=== PATIENT | female | born 1935 | race Caucasian/White ===

== ENCOUNTER 2018-12-24 19:58 | Inpatient (IN) | payer OTHER ==
[~2018-12-24] VITALS: Ht 160 cm; Wt 69.7 kg
[2018-12-24 20:01] VITALS: Ht 160 cm; Wt 69.7 kg
--- NOTE | 2018-12-24 20:28 | NUR ---
PT KNOCKED AT THE DOOR STATING SHE WAS FEELING WORSE AND DIAPHORETIC. EKG IN PROGRESS.
[2018-12-24 21:05] LABS: BASOPHIL % 0.3 % (0-2); PLATELET COUNT 163 x10^3mcL (130-400); RED CELL DISTRIBUTION WIDTH 13.1 % (11.5-14.5)
--- NOTE | 2018-12-24 21:07 | NUR ---
PT CAME TO ED CO ABD PAIN X1 DAY. PT STS IT STARTED SUDDENLY. PT DISCRIBES THE PAIN CONSENT SHARP PAIN, NON RADIATING, RATING IT 10/10. PT STS SHE TOOK MEDICATION AT HOME AND THREW IT UP. NO S/S OF DISTRESS. REPS E/U. PAIN UPON PALPATION AT THE UMBILICUS. BOWEL SOUNDS ACTIVE IN ALL FOUR QUADRANT. DAUGHTER IN LAW AT BEDSIDE. COMFORT MEASURES IMPLEMENTED. WILL CONTINUE TO MONITOR.
[2018-12-24 21:13] LABS: CARBON DIOXIDE 22.5 mmol/L (21-32); CHLORIDE SERUM 103 mmol/L (98-107); CREATININE SERUM 0.9 mg/dL (0.6-1.0); GLUCOSE SERUM 160 mg/dL (74-106); POTASSIUM SERUM 3.1 mmol/L (3.5-5.1); SODIUM SERUM 140 mmol/L (136-145)
[2018-12-24 21:18] LABS: ALBUMIN 3.8 g/dL (3.4-5.0); ALKALINE PHOSPHATASE 102 U/L (46-116); ALT/SGPT 30 U/L (14-59); AST/SGOT 32 U/L (15-37); BILIRUBIN TOTAL 1.6 mg/dL (0.20-1.00); TOTAL PROTEIN, SERUM 7.7 g/dL (6.4-8.2)
--- NOTE | 2018-12-24 21:30 | NUR ---
PT MEDICATED PER ORDER. PT VERBALIZED UNDERSTANDING OF MEDICATION TEACHING. SEE EMAR FOR DETAILS.
--- NOTE | 2018-12-24 22:23 | NUR ---
PT MEDICATED PER ORDER. PT VERBALIZED UNDERSTANDING OF MEDICATION TEACHING. SEE EMAR FOR DETAILS.
--- NOTE | 2018-12-25 00:52 | NUR ---
PT MEDICATED PER ORDER. PT VERBALIZED UNDERSTANDING OF MEDICATION TEACH. SEE EMAR FOR DETAILS.
--- NOTE | 2018-12-25 01:36 | NUR ---
PT SITTING UP ON GURNEY, PT HAD 1 EPISODE OF VOMITING. DAUGHTER AT BEDSIDE. COMFORT MEASURES IMPLEMENTED. INFORMED MD OF DROP IN BP.
--- NOTE | 2018-12-25 01:54 | NUR ---
REPORT CALLED TO GUZMAN CINTRON TO ASSUME CARE OF PT.
--- NOTE | 2018-12-25 02:09 | NUR ---
NG TUBE PLACEMENT CONFIRM BY DR. PASTOR.
--- NOTE | 2018-12-25 02:14 | NUR ---
PT TRANSFERRED TO MED SURG FLOOR ACCOMPANIED BY EMT. NO S/S OF DISTRESS. RESP E/U. IV SITES PATENT. PT DENIES PAIN OR DISCOMFORT TO SITES. NO S/S OF INFILTRATION. DAUGHTER IN LAW PRESENT ON TRANSFER. RN AWARE OF FLUIDS RUNNING.
[2018-12-25 03:02] VITALS: BP 142/1; BP 142/81
--- NOTE | 2018-12-25 03:20 | NUR ---
Admitted this 83 y/o female from ED via [facility]. Dx SBO. Alert and oriented. No respiratory distress noted on room air. Ambulatory. On and off abd'l.pain and n/v. Medicated as ordered. NGTube to low intermittent suction. Admission assessment done. Kept comfortable. In no apparent distress. Call light within reach. Will cont.to monitor.
--- NOTE | 2018-12-25 04:12 | NUR ---
Pt.sleeping at this time. NGtube with scanty output. Will cont.to monitor.
[2018-12-25 05:42] VITALS: BP 107/67
[2018-12-25 07:30] VITALS: BP 113/69
--- NOTE | 2018-12-25 07:45 | NUR ---
ALERT AND ORIENTED. BREATHING FREELY ON RA. RT NARE NGT TO LOW SUCTION. SCANT AMT DARK GREEN GLUID IN CANISTER AND TUBING. NPO FOR POSS SX CONSULT AND SBO. INTERMITTENT N/V DARK GREEN FLUID. ABD SOFT AND ROUND. HYPOACTIVE BOWEL SOUNDS. LAST BM 12/24/18 NORMAL. D5NS INFUSING 70 CC HOUR. ABLE TO TURN AND REPOSITION SELF IN BED. CALL LIGHT WITHIN REACH.
[2018-12-25 08:48] VITALS: BP 113/69
--- NOTE | 2018-12-25 15:43 | NUR ---
CALLED AND SPOKE TO AND HE TOLD ME THAT WAS ALREADY NOTIFIED BY HIM OF NEED FOR SURGICAL CONSULT. NEW ORDER RECEIVED FROM SMALL BOWEL FOLLOW THROUGH FOR TOMORROW. KENTRELL HINDS ASSIGNED TO THIS PT MADE AWARE OF ABOVE.
[2018-12-25 16:13] VITALS: BP 106/73
--- NOTE | 2018-12-25 18:27 | NUR ---
ONGOING BOWEL FOLLOW THROUGH. 2ND XR BEING TAKEN. NEXT AT 2029, LAST 2129.
--- NOTE | 2018-12-25 18:35 | NUR ---
SEEN BY DR.AL STAPLES TODAY. SURGICAL CONSULT WITH DR. MECHELLE TRUONG. NGT CLAMPED FOR CONTRAST VIA NGT. TOLERATED WELL. BRP WITH ASSIST. NO BM. SEVERAL SMALL EMESIS DARK GREEN. NPO EXCEPT MEDS. DTR AT BEDSIDE. NS 70 CC HOUR TO RT AC. CALL LIGHT WITHIN REACH. VSS. INTERMITTENT EPIGASTRIC PAIN. MORPHINE HELPFUL.
[2018-12-25 19:40] VITALS: BP 108/65
--- NOTE | 2018-12-25 19:40 | NUR ---
RECEIVED PT AWAKE ALERT AND VERBALLY RESPONSIVE.NGT TO R NARES CLAMPED AT THIS TIME.SBFT ONGOING.ABDOMEN SOFT AND ROUND.AR 6/10 TO SHARP PAIN.NO N/V NOTED.MORPHINE 2 MG IVP ADMINISTERED.BP 108/65 MMHG,HR 118.COMFORT MEASURES RENDRED.DAUGHTER AT BEDSIDE.WILL CONTINUE TO MONITOR.
--- NOTE | 2018-12-25 23:00 | NUR ---
DR Renée TRUONG HERE SPOKE TO PATIENT AND UPDATED PLAN OF CARE.
--- NOTE | 2018-12-26 00:59 | NUR ---
RECEIVED RESULT SBFT WITH RECOMMENDATIONS TO DO ANOTHER FILM IN 2HOURS.CONTRAST HAS NOT REACH CECUM IN THE 6 HOURS PROCEDURE.RADIO TECH WITH DO ANOTHER 1 PER CONVERSATION.WILL CONTINUE TO MONITOR.
--- NOTE | 2018-12-26 04:41 | NUR ---
PT SLEPT WITH INTERVALS.MEDICATED WITH MORPHINE 2 MG IVP X1 FOR ABDOMINLA PAIN WITH GOOD RELIEF.VOMITED X2 TO DARK GREENISH COLORED OUTPUT 400 ML AND MEDICATED WITH ZOFRAN 4 MG IVP X2 WITH GOOD RESULT.NO ASE NOTED FROM ROCEPHIN IV ATB.NGT HOOKED BACK TO LIS AFTER SBFT PROCEDURE.ALL NEEDS MET.WILL CONTINUE TO MONITOR.
[2018-12-26 05:51] VITALS: BP 109/71
[2018-12-26 06:16] LABS: BASOPHIL % 0.2 % (0-2); PLATELET COUNT 174 x10^3mcL (130-400); RED CELL DISTRIBUTION WIDTH 12.9 % (11.5-14.5)
--- NOTE | 2018-12-26 07:25 | NUR ---
PATIENT SLEEPING AT THIS TIME, SITTER REMAIN AT BEDSIDE. CONT TO MONITOR.
--- NOTE | 2018-12-26 07:45 | NUR ---
DR. Renée FUENTES CALL FOR SBFT RESULT, INFORM DR. FUENTES WAITING FOR RESULT. WILL CALL DOCTOR FOR RESULT.
--- NOTE | 2018-12-26 07:54 | NUR ---
PATIENT AWAKE/ALERT IN BED FRAMING AND HANGING BO AT BEDSIDE DISCUSS POC. DISCUSS PAIN MANAGEMENT PLACE ON [place] PO Q6H PRN; PATIENT WAS ALSO INFORM NO IV PAIN MED PATIENT AGREE. WAITING FOR DR. SUH TO CLEAR 5150 HOLD IS UP TOMORROW.
[2018-12-26 08:12] VITALS: BP 125/79
--- NOTE | 2018-12-26 09:16 | NUR ---
SPOKE TO DR. BRYON CALVIN NOW REGARD TO RADIOLOGY REQUEST F/U THE SBFT CONTRAST YESTERDAY.
--- NOTE | 2018-12-26 10:22 | NUR ---
DR. Pita FUENTES CALL TO FLOOR SPOKE TO RN GAVE ORDER PT, INR, TYPE& SCREEN, AND OBTAIN CONSENT FOR EXPLORATORY LAPAROTOMY FOR SBO, POSSIBLE BOWEL RESECTION.
--- NOTE | 2018-12-26 10:45 | NUR ---
PATIENT SAT UP AT SIDE OF BED, NGT CLAMPED, IV HEPLOCK. TAMI WIPE PROVIDED, NEW GOWN AND BED LINENS CHANGED. TRANSPORT HERE FOR PATIENT. PATIENT OFF VIA BED TO OR.
[2018-12-26 11:34] LABS: CALCIUM 9.3 mg/dL (8.5-10.1); CARBON DIOXIDE 23.8 mmol/L (21-32); CHLORIDE SERUM 106 mmol/L (98-107); CREATININE SERUM 1.4 mg/dL (0.6-1.0); GLUCOSE SERUM 136 mg/dL (74-106); POTASSIUM SERUM 4.1 mmol/L (3.5-5.1); SODIUM SERUM 141 mmol/L (136-145)
--- NOTE | 2018-12-26 13:50 | NUR ---
CALL ICU GAVE REPORT TO EMMA, PATIENT WILL BE TRANSFER TO ICU1.
--- NOTE | 2018-12-26 14:35 | NUR ---
RECIEVED PT FROM PACU S/P ABD EX-LAP. PT A/O X4. BREATHING EVEN AND UNLABORED ON O2 VIA NC AT 2LPM WITH SPO2 OF 97%. DENIES ANY SOB WITH NO RESP DISTRESS NOTED. NGT TO RIGHT NARE CLAMPED AND SECURED IN PLACE. MID ABD SURGICAL INCISION DRESSED WITH ABD PAD AND ABD BINDER IN PLACE. DRESSING CDI. PT REPORTS 8/10 SORENESS TO SURGICAL SITE. MILLER CATH IN PLACE AND DRAINING TO GRAVITY. RIJ CENTRAL LINE WAS PLACED IN OR AND AWAITING FOR VERIFICATION VIA CXR. PT ORIENTED TO ROOM AND CALL LIGHT SYSTEM. PRIMARY RN MADE AWARE OF ABOVE. WILL CONT TO MONITOR.
--- NOTE | 2018-12-26 15:22 | NUR ---
DR. SLATER PAGED, AND CALLED BACK AT THIS TIME. INFORMED DR. SLATER THAT PATIENT IS IN ICU PER DR. TRUONG FOR FURTHER MONITORING. ALSO INFORMED DR. SLATER THAT PATIENT HAS A CENTRAL LINE. REPORTED THE CXR RESULTS TO DR. SLATER. PER DR. SLATER, IT IS OK TO USE THE CENTRAL LINE.
[2018-12-26 15:46] VITALS: BP 154/70
--- NOTE | 2018-12-26 19:06 | NUR ---
REPORT GIVEN TO GUZMAN ALVARADO AT THIS TIME. ALL QUESTIONS ANSWERED.
[2018-12-26 19:18] VITALS: BP 146/90
--- NOTE | 2018-12-26 19:30 | NUR ---
REC'D REPORT FROM HARVEY HINDS TO ASSUME CARE. PT IS A/O X4, SPEECH CLEAR AND APPROPRIATE. SLEEPING BUT EASILY AROUSABLE. PERRLA NOTED. RIGHT NARE NGT INTACT AND SECURED. PT KEPT NPO. NO DRAINAGE TO EYES, EARS, AND THROAT. RIJ CVC IN PLACE, DSG CDI. RESPS E/U ON ROOM AIR. CHEST RISE EQUAL AND SYMMETRICAL. LUNG SOUNDS CTA. DIRECTOR TALENT IN PLACE SHOWING ST. CHEST WALL STABLE. DENIES ANY CP, SYNCOPE, OR DIZZINESS. BP 146/90 MAP 101 HR 100. PULSES PALPABLE X4. CAP REFILL < 3 SECS. NO EDEMA NOTED. IVF D5 NS WITH 20 MEQ KCL @ 125 ML/HR. ABD ROUND SOFT, NONTENDER TO TOUCH. BOWEL SOUNDS HYPOACTIVE. DENIES ANY N/V/D. F/C INTACT AND DRAINING VIA GRAVITY YELLOW URINE. DENIES ANY URINARY SYMPTOMS. SURGICAL INCISION TO MID ABD WITH LISA AND SUTURES, DSG CDI. ABD BINDER IN PLACE. S/P EX LAP TODAY. GEN WEAKNESS NOTED. ABLE TO REPOSITION SELF. ALL NEEDS MET AT THIS TIME. INSTRUCTED TO USE CALL LIGHT FOR ANY ASSISTANCE. VERALIZED UNDERSTANDING. CALL LIGHT WITHIN REACH. WILL CONTINUE TO MONITOR.
--- NOTE | 2018-12-26 19:40 | NUR ---
IV TO RAC SEEN OUT WITH CATHETER INTACT. NO ACTIVE BLEEDING NOTED. PTS BED WET, ALL LINENS CHANGED, PT REPOSITIONEDW WITH ASSIST.
--- NOTE | 2018-12-26 19:47 | NUR ---
CALLED MECHELLE NELSON (SURGEON) TO CONFIRM CENTRAL LINE PLACEMENT RESULT, DR TRUONG STATES WILL CHECK CXRAY RESULT AND CALL BACK. USE PERIPHERAL LINES FOR NOW.
--- NOTE | 2018-12-26 23:33 | NUR ---
IV TO LAC INFILTRATED. IV REMOVED WITH CATHETER INTACT. BLEEDING CONTROLLED. PRESSURE DRESSING IN PLACE. IV INSERTED TO RFA G 20 AND LFA G 20 WITH GOOD BLOOD RETURN.
[2018-12-27 00:01] VITALS: BP 132/78
--- NOTE | 2018-12-27 01:30 | NUR ---
PT WITH C/O DRY MOUTH, ORAL CARE PROVIDED.
[2018-12-27 03:15] VITALS: BP 118/77
--- NOTE | 2018-12-27 05:00 | NUR ---
BED BATH PROVIDED WITH CHG WIPES, F/C CARE PROVIDED. LINENS CHANGED. PT REPOSITIONED TO COMFORT.
[2018-12-27 05:17] LABS: BASOPHIL % 0.3 % (0-2); PLATELET COUNT 134 x10^3mcL (130-400); RED CELL DISTRIBUTION WIDTH 13.2 % (11.5-14.5)
--- NOTE | 2018-12-27 05:24 | NUR ---
PT WITH C/O DRY MOUTH, ORAL CARE PROVIDED.
[2018-12-27 05:26] LABS: CALCIUM 7.9 mg/dL (8.5-10.1); CHLORIDE SERUM 112 mmol/L (98-107); GLUCOSE SERUM 158 mg/dL (74-106); MAGNESIUM 2.2 mg/dL (1.8-2.4); POTASSIUM SERUM 4.3 mmol/L (3.5-5.1); SODIUM SERUM 144 mmol/L (136-145)
--- NOTE | 2018-12-27 06:37 | NUR ---
PT WITH C/O DRY MOUTH. PT ASSISTED TO BRUSH TEETH, UPPER DENTURES CLEANED AND PLACED BACK IN MOUTH.
[2018-12-27 07:15] VITALS: BP 124/77
--- NOTE | 2018-12-27 07:15 | NUR ---
PATIENT AWAKE AND ORIENTED TO PERSON, PLACE AND . PATIENT DENIES SHORTNESS OF BREATH, NAUSEA/VOMITING OR PAIN AT THIS TIME. NGT IN PLACE AND SECURED TO RIGHT NARE; NGT CLAMPED AT THIS TIME. CVC TO RIJ WITH DRESSING INTACT. OTHER IV SITES TO RFA AND LFA. IVF D5 NS WITH 20MEQ KCL AT 125ML/HR. MID ABD. INCISION WITH DRESSING IN PLACE AND COVERED WITH ABDOMINAL BINDER. TELE # 1 READS SINUS TACHYCARDIA. MILLER CATH TO GRAVITY DRAINING YELLOW URINE. CALL LIGHT WITHIN REACH. SIDE RAILS UP X3. BED IS AT LOWEST POSITION. ALARM IS ON.
--- NOTE | 2018-12-27 08:19 | NUR ---
DR. SLATER WAS AT BEDSIDE ASSESSING THE PATIENT.
--- NOTE | 2018-12-27 08:20 | NUR ---
SPOKE WITH DR SLATER REGARDING PLACEMENT OF CENTRAL LINE. DR SLATER REVIEWED RADIOLOGY REPORT AND ORDER RECEIVED FOR MODESTO TO USE CENTRAL LINE.
--- NOTE | 2018-12-27 08:26 | NUR ---
SPINE NURSE IS AT BEDSIDE FOR MARIXA.
--- NOTE | 2018-12-27 08:45 | NUR ---
NGT PLACEMENT WAS VERIFIED WITH SOME AIR BOLUS ADDITIONAL TO KUB RESULT THIS MORNING. NGT CONNECTED TO LOW INTERMITTENT SUCTION ORDERED BY DR. SLATER. SCANT AMOUNT OF GREEN OUTPUT IN NGT.
--- NOTE | 2018-12-27 09:30 | NUR ---
PATIENT C/O SHARP PAIN 7/10 TO SURGICAL SITE AT ABDOMEN; MORPHINE 4MG IVP GIVEN TO THE PATIENT ORDERED.
--- NOTE | 2018-12-27 10:45 | NUR ---
REPORT GIVEN TO GUZMAN SAGASTUME FROM [facility]. THE PATIENT WILL BE TRANSFERRED TO ROOM 212B, [facility].
--- NOTE | 2018-12-27 10:45 | NUR ---
BOTH PATIENT AND HER SISTER, RUBIA AT BEDSIDE WERE MADE AWARE THAT THE PATIENT WILL BE TRANSFERRED TO [facility] (PATIENT AGREED FOR HER SISTER TO KNOW THAT SHE IS TRANSFERRED TO [facility]).
--- NOTE | 2018-12-27 11:06 | NUR ---
SPOKE TO DR FUENTES AND REPORTED LABS. AFTER HANGING UP, REALIZED YESTERDAY LABS WERE PROVIDED TO ME IN AM REPORT. TELEPHONED DR FUENTES BACK AND LEFT MESSAGE ON HIS CELL PHONE TO RETURN CALL TO ICU TO REPORT CURRENT LABS.
--- NOTE | 2018-12-27 11:18 | NUR ---
THE PATIENT TRANSFERRED TO ROOM 212B, [facility] VIA BED IN STABLE CONDITION. IRMA SAGASTUME RN IS AT BEDSIDE TO RECEIVE THE PATIENT. PATIENT'S DENTURE IN THE GREEN CUP HANDED TO GUZMAN SAGASTUME.
--- NOTE | 2018-12-27 11:25 | NUR ---
PATIENT ARRIVED UP FROM ICU VIA GURNEY. NO ACUTE DISTRESS NOTED. PATIENT ON ROOM AIR. PATIENT ON LIS TO RIGHT NARE. ABD BINDER IN PLACE, MIDLINE INCISION INTACT. TELE MONITOR IN PLACE. PATIENT DENIES PAIN. MILLER CATH DRAINING TO GRAVITY, YELLOW URINE NOTED. D5 NS WITH 20MEQ KCL INFUSING AT 70ML/HR. VITAL SIGNS STABLE; TEMP:98.3,HR 73,BP:130/81 MAP:102 HR 111. CALL LIGHT WITHIN REACH, BED IN LOW POSITION, WILL CONTINUE TO MONITOR.
--- NOTE | 2018-12-27 13:32 | NUR ---
PATIENT C/O OF SHARP ABDOMINAL PAIN 11/20, PAIN INCREASES WITH MOVEMENT. MEDICATED PATIENT WITH MORPHINE 4MG IVP PER PROTOCOL (SEE EMAR). EDUCATED PATIENT ON PAIN MANAGEMENT, PATIENT VERBALIZES UNDERSTANDING. WILL CONTINUE TO MONITOR AND MANAGE PAIN.
--- NOTE | 2018-12-27 17:00 | NUR ---
PATIENT IS SLEEPING AT THIS TIME. NO ACUTE DISTRESS NOTED NOTED. CALL LIGHT WITHIN REACH, BED IN LOW POSITION, WILL CONTINUE TO MONITOR.
[2018-12-27 17:42] VITALS: BP 112/72
--- NOTE | 2018-12-27 18:52 | NUR ---
PATIENT IS SLEEPING AT THIS TIME, FAMILY AT BEDSIDE. PATIENT AROUSABLE TO TOUCH, DENIES PAIN. TELE MONITOR IN PLACE. ABDOMINAL BINDER IN PLACE. PATIENT DENIES SOB, ON ROOM AIR. NGT TO LOW INTERMITTENT SUCTION. ADBOMINAL MIDLINE INCISION INTACT, NO DRAINAGE NOTED. D5NS WITH 20MEQKLC AT 70ML/HR TO RFA, IV SITE CDI & PATENT, NO S/S OF INFILTRATION. IV TO RFA SALINE LOCK, NO S/S OF INFILTRATION. CALL LIGHT WITHIN REACH, BED IN LOW POSITION, WILL ENDORSE REPORT TO NIGHT RN.
--- NOTE | 2018-12-27 19:20 | NUR ---
RECEIVED PT LAYING IN BED, NO ACUTE DISTRESS OBSERVED, DENIES PAIN OR DISCOMFORT, GRAND DAUGHER AT BEDSIDE. PT IS AA/OX4, ABLE TO MAKE NEEDS KNOWN, SPEECH CLEAR AND APPROPRIATE. SINUS TACH TO TELE #11, HR 124, DENIES CP OR PRESSURE. PULSES PRESENT AND EQUAL THROUGHOUT, NO EDEMA, PT ON LOVENOX SQ THERAPY. BREATHING ON RA, EVEN AND UNLABORED, NO SOB OR DYSPNEA OBSERVED. ABD ROUND AND SOFT WITH HYPOACTIVE BOWEL SOUNDS, NPO ORDERED, TPN TO START TONIGHT ORDERED. NGT TO R NARE IN PLACE, CONNECTED TO LIS SUCTION. S/P EX LAP YESTERDAY, 12/26/18, MIDLINE ABD INCISION IN PLACE WITH SUTURES AND LISA, DRAINAGE MARKED, ABD BINDER IN PLACE. MILLER CATH IN PLACE DRAINING YELLOW URINE TO GRAVITY. GENERALIZED WEAKNESS, ABLE TO TURN AND REPOSITION SELF IN BED, PT IS AMBULATORY AT BASELINE. PERIPHERAL IV SITE X2 TO RFA AND LFA, BOTH DRY, PATENT, AND INTACT. RFA IV INFUSING FINAL BAG OF D5NS WITH 20 MEQ KCL. LFA IV SALINE LOCKED. RIJ CENTRAL LINE IN PLACE, TRIPLE LUMEN, ALL PORTS PATENT AND INTACT, DRESSING CDI. COMFORT AND SAFETY MEASURES IN PLACE, ALL NEEDS ASSESSED AND ATTENDED TO. CALL LIGHT WITHIN REACH. WILL CONTINUE TO MONITOR
--- NOTE | 2018-12-27 19:52 | NUR ---
RECEIVED PHONE CALL FROM DR. MECHELLE FUENTES, UPDATED ON PT'S STATUS. ALL QUESTIONS AND CONCERNS ADDRESSED. NO NEW ORDERS AT THIS TIME
--- NOTE | 2018-12-27 21:00 | NUR ---
TPN INITIATED ORDERED, INFUSING AT 80 ML/HR VIA RIJ CENTRAL LINE. INFUSING WELL. ALL PORTS FLUSHED AND PATENT, WITH GOOD BLOOD RETURN. PT AND GRAND DAUGHTER EDUCATED ON NEED AND IMPORTANCE OF TPN. NO ACUTE DISTRESS OBSEREVED. CALL LIGHT WITHIN REACH. WILL CONTINUE TO MONITOR
[2018-12-27 22:44] VITALS: BP 131/81
--- NOTE | 2018-12-28 04:00 | NUR ---
PT C/O 12/21 ABD PAIN AND FEELING NAUSEOUS, REQUESTING PAIN AND NAUSEA MEDS. MEDICATED WITH PRN ZOFRAN AND MORPHINE PER EMAR.
--- NOTE | 2018-12-28 06:10 | NUR ---
NO SIGNIFICANT CHANGES TO REPORT, PT COMPLIED WITH NURSING CARE THROUGHOUT THE SHIFT WITH NO ACUTE EVENTS OVERNIGHT. TPN REMAINS INFUSING VIA RIJ CENTRAL AT 80 ML/HR. RIJ CENTRAL LINE, TRIPLE LUMEN CATH REMAINS INTACT, ALL PORTS PATENT, DRESSING CDI, CHG WIPES DONE PER PROTOCOL. NO ACUTE DISTRESS OBSERVED AT THIS TIME, PT LAYING IN BED, BREATHING EVEN AND UNLABORED. COMFORT AND SAFETY MEASURES MAINTAINED. ALL NEEDS ASSESSED AND ATTENDED TO. CALL LIGHT WITHIN REACH. WILL CONTINUE TO MONITOR AND ENDORSE CARE TO DAY SHIFT NURSE
[2018-12-28 06:21] VITALS: BP 108/68
--- NOTE | 2018-12-28 07:40 | NUR ---
RECEIVED PATIENT RESTING IN BED, NO ACUTE DISTRESS NOTED. PATIENT DENIES PAIN. TELE MOITOR IN PLACE, ST RHYTHM. PATIENT ON LOVENOX. SCDS IN PLACE. DENIES SOB, ON ROOM AIR. RIGHT NARE NGT TO LIS. MILLER CATH DRAINING TO GRAVITY, YELLOW URINE NOTED. S/P LAP EX. 12/26, MIDLINE ABD INCISION IN PLACE WITH SUTURES & LISA INTACT, DRAINAGE MARKED, ABDOMINAL BINDER IN PLACE. EDUCATED PATIENT TO PLACE PILLOW ON ABDOMEN, WHEN NEEDING TO COUGH. PERIPHERAL IV SITE X2 TO RFA & LFA SALINE LOCK, NO S/S OF INFILTRATION. RIJ CENTRAL LINE IN PLACE, TRIPLE LUMEN PATENT AND INTACT, TPN INFUSING AT 80ML/HR. ALL NEEDS MET. CALL LIGHT WITHIN REACH, BED IN LOW POSITION, WILL CONTINUE TO MONITOR.
[2018-12-28 07:44] LABS: BASOPHIL % 0.9 % (0-2); CALCIUM 7.8 mg/dL (8.5-10.1); CARBON DIOXIDE 24.1 mmol/L (21-32); CHLORIDE SERUM 107 mmol/L (98-107); CREATININE SERUM 0.8 mg/dL (0.6-1.0); GLUCOSE SERUM 176 mg/dL (74-106); MAGNESIUM 2.1 mg/dL (1.8-2.4); PLATELET COUNT 152 x10^3mcL (130-400); POTASSIUM SERUM 3.9 mmol/L (3.5-5.1); RED CELL DISTRIBUTION WIDTH 12.9 % (11.5-14.5); SODIUM SERUM 140 mmol/L (136-145)
[2018-12-28 09:33] VITALS: BP 113/67
--- NOTE | 2018-12-28 10:29 | NUR ---
PATIENT WAS FEELING RESTLESS AND ANXIOUS, DR HANSEN MADE AWARE. DR HANSEN GAVE TELEPHONE ORDER/READBACK FOR ATIVAN 0.5MG IVP Q8HP, WILL CARRY OUT TORB AT THIS TIME.
--- NOTE | 2018-12-28 11:09 | NUR ---
DR HANSEN SPOKE WITH THE SURGICAL SURGEON REGARDING PATIENT PLAN OF CARE. DR HANSEN GAVE TELEPHONE ORDER/ READBACK TO DISCONTINUE NGT, PATIENT IS TO REMAIN NPO. WILL CARRY OUT TORB AT THIS TIME.
[2018-12-28 12:38] VITALS: BP 140/83
--- NOTE | 2018-12-28 13:03 | NUR ---
NGT TO RIGHT NARE REMOVED. PATIENT TOLERATED REMOVAL. PATIENT STATES HER MOUTH FEELS DRY, PROVIDE PATIENT WITH MOISTEN SWABS. PATIENT UNDERSTANDS SHE WILL REMAIN NPO UNTIL THE SURGEON CLEARS HER. PATIENT VERBALIZES UNDERSTANDING.
--- NOTE | 2018-12-28 13:05 | NUR ---
PATIENT ATTEMPTED TO PULL OFF CENTRAL LINE DRESSING, PATIENT STATED THE DRESSING WAS BOTHERING HER. RN CHAGO PROVIDED PATIENT WITH CENTRAL LINE DRESSING CHANGE. EDUCATED PATIENT IT IS VERY IMPORTANT NOT TO PULL OR MESS WITH DRESSING, THIS CAN INCREASE RISK FOR INFECTION. PATIENT & FAMILY VERBALIZE UNDERSTANDING.
--- NOTE | 2018-12-28 13:25 | NUR ---
PATIENT WAS C/O OF MILD TO MODERATE PAIN, DR HANSEN AWARE. DR HANSEN GAVE TELEPHONE ORDER/READBACK FOR TORDOL 30MG Q6HP, WILL CARRY OUT TORB AT THIS TIME.
--- NOTE | 2018-12-28 15:50 | NUR ---
PATIENT IS SLEEPING IN BED. FAMILY AT BEDSIDE, UPDATED FAMILY ON POC AT THIS TIME. ALL QUESTIONS & CONCERNS ADDRESSED. WILL CONTINUE TO MONITOR PATIENT.
--- NOTE | 2018-12-28 16:40 | NUR ---
DR. TRUONG AT BEDSIDE, SPOKE WITH PATIENT AND FAMILY REGARDING POC. ALL QUESTIONS AND CONCERNS ADDRESSED. CALL LIGHT WITHIN REACH, BED IN LOW POSITION, WILL CONTINUE TO MONITOR.
[2018-12-28 17:40] VITALS: BP 128/77
--- NOTE | 2018-12-28 18:31 | NUR ---
PATIENT IS LAYING IN BED, FAMILY AT BEDSIDE. NO ACUTE DISTRESS NOTED. PATIENT IS COMFORTABLE AND DENIES PAIN. ALL NEEDS MET. TELE MONITOR IN PLACE. ABDOMINAL INCISION CDI WITH ABDOMINAL BINDER. TPN INFUSING TO RIJ CENTRAL LINE. PERIPHERAL IV SITE X2 TO LFA & RFA, CDI & PATENT, NO S/S OF INFILTRATION. CALL LIGHT WITHIN REACH, BED IN LOW POSITION, WILL CONTINUE TO MONITOR.
--- NOTE | 2018-12-28 19:05 | NUR ---
PT RECEIVED FROM THE DAY SHIFT RN, PT IS ALERT AND ORIENTED X4, CALM AND COOPERATIVE WITH CARE, NO ACUTE DISTRESS NOTED. PT IS ON 4L OF O2 VIA NC, PT WAS COMPLAINING THAT SHE WAS FEELING SOB, MILLER CATHETER IN PLACE AND DRAINING FREELY, PT DAUGHTERS ARE AT THE BEDSIDE, SCDS IN PLACE, NO COMPLAINT OF PAIN AT THIS TIME. TRIPLE LUMEN RIGHT SIDE CENTRAL LINE IN PLACE AND INFUSING TPN AND ZOSYN, IV SITE INTACT AND PATENT, PT DENIES CHEST PAIN AND DIZZINESS, SAFETY AND COMFORT MEASURES MAINTAINED, BED IN LOWEST POSITION, CALL LIGHT WITHIN REACH, WILL CONTINUE TO MONITOR AT THIS TIME.
[2018-12-28 21:23] VITALS: BP 136/86
--- NOTE | 2018-12-28 23:15 | NUR ---
PT COMPLAINING OF SOB, PT WAS PUT ON 4L O2 VIA NC, PT SOUNDING CONGESTED, STOPPED TPN FOR NOW DUE TO POSSIBLE FLUID OVERLOAD, CALLED DR RANDLE, OBTAINED ORDERS FOR STAT CXR, AND RT AND BREATHING TREATMENTS, PT PUT IN FOWLERS POSITION, ON 4 L NC LUNG SOUNDS ARE CONGESTED AND EXPIRATORY GRUNTING IS NOTED. O2 SATURATION 98%. WILL CONTINUE TO MONITOR AT THIS TIME.
[2018-12-28 23:21] VITALS: BP 136/86
--- NOTE | 2018-12-29 00:33 | NUR ---
SPOKE WITH PATIENTS DAUGHTER LORE, GAVE PT DAUGHTER UPDATES. PT DAUGHTER HAS NO FURTHER QUESTIONS OR CONCERNS AT THIS TIME.
--- NOTE | 2018-12-29 00:34 | NUR ---
SPOKE WITH DR CARTER, DR CARTER CALLED FOR PATIENT STATUS, PER DR CARTER, PLACE PT ON BIPAP, DO A STAT ABG, GIVE IVP LASIX 4O MG RIGHT NOW, ORDER BNP LABS FOR THE AM, STOP TPN UNTIL FURTHER NOTICE, CONTINUE O2 MONITORING, AND SAFETY AND COMFORT MEASURES. WILL CONTINUE TO MONITOR AT THIS TIME.
--- NOTE | 2018-12-29 02:36 | NUR ---
PT IS RESTING IN BED WITH EYES CLOSED AT THIS TIME. NO ACUTE DISTRESS NOTED. PT IS WEARING BIPAP AT THIS TIME. MILLER CATHETER IN PLACE AND DRAINING FREELY. NO S/S OF PAIN NOTED. SAFETY AND COMFORT MEASURES MAINTAINED, BED IN LOWEST POSITION, CALL LIGHT WITHIN REACH.
--- NOTE | 2018-12-29 05:08 | NUR ---
PT IS RESTED IN INTERMITTENT/SHORT INTERVALS THROUGHOUT THE SHIFT. PT WAS ON BIPAP EARLIER IN THE SHIFT AND IS NOW ON 2L OF O2 VIA NC, PT IS ALERT AND ORIENTED X2-3, CALM AND COOPERATIVE WITH CARE, RIJ CENTRAL LINE IN PLACE AND INTACT, PT MILLER IN PLACE AND DRAINING STRAW YELLOW URINE, PT IS AWAKE AND HAS NO COMPLAINT OF PAIN AT THIST TIME. TPN HAS BEEN PUT ON HOLD AT THIS TIME PER DR CARTER ORDERS, PT WAS COMPLAINING OF SOB EARLIER IN THE SHIFT ( SEE NOTES) IV INTACT AND PATENT, PT IS ON CONTINOUS O2 MONITORING, SAFETY AND COMFORT MEASURES MAINTAINED, BED IN LOWEST POSITION, CALL LIGHT WITHIN REACH. WILL ENDORSE CONTINUITY OF CARE TO THE ONCOMING RN. WILL CONTINUE TO MONITOR.
[2018-12-29 05:15] VITALS: BP 124/78
--- NOTE | 2018-12-29 08:00 | NUR ---
RECEIVED PATIENT WHO APPEARS TO BE ORIENTED BUT AT TIMES NOTE SHE IS PULLING A BEDDING AND LINES. SHE WAS INFORMED ABOUT THE DANGERS OF THIS AND ENCOURAGED TO DEEP BREATH AND TO REQUEST ASSIST WITH ADLS. MILLER TO GRAVITY AND URINE IS LELAND AND CLEAR IN APPEARANCE. SHAINA HAS BEEN ON BI PAP AT NIGHT AND AT THIS TIME SHE HAS DIMINISHED BUT CLEAR BREATH SOUNDS. THE CENTRAL LINE DRESSING INTACT AND THE LINES ARE PATENT. CONTINUED ON TPN ORDERED. VITALS AT THIS TME AT 98.7, 105, 124/78, 98% PM RPP, AIR. PATIENT HAS BOWEL SOUNDS ADN DRESSING TO THE ABDOMEN INTACT AND DRY AND ABDOMINAL BINDER IN PLACE/ [facility] HAS SCDS IN PLACE AND IS FOR PT ON SUNDAY. PATIENT HAS HAD LASIX LAST NIGHT AD URINE OUTPUT IS ADEQUATE AT THIS TIME. LOVENOX GIVEN AND SHE HAS HAD ZOSYN IVP AND NO ADVERSE REACTION. NOTED LASB ARE THE CA T 7.8. H AND H IS AT 11.3/32. NO ACUTE DISTRESS OR PAIN AT THIS TIME.
[2018-12-29 08:52] VITALS: BP 108/62
--- NOTE | 2018-12-29 10:57 | NUR ---
RESTING QUIETLY AND NO INDICATION OF RESPIRATORY DISRESS.
--- NOTE | 2018-12-29 10:59 | NUR ---
Initial Nutrition Assessment- Dx: small bowel obstruction, post exploratory laparostomy on 12/26/18 PMHx: HTN PSHx: cholecystectomy Labs: Meds: Ativan, D10%, D50%, humulin R, Lasix, morphine sulfate, Pepcid, TPN electrolytes, Tylenol, zofran Diet: NPO Current TPN Support: AA 4.25%, D 10% at 80 mL/hr via central line. TPN Intake: (12/28) 1000 mL, (12/29) 1120 mL I/O: (12/26) 1720/475 (+1245), (12/27) 3275/500 (+2775), (12/28) 1550/750 (+800), (12/29) 1450/700 (+750) Ht: 160.02 cm/63 inches/5'3" Wt: 69.7 kg/153 pounds BMI: 27.2 kg/m2, slightly overweight for age IBW: 115 pounds/52 kg %IBW: 133% AdjBW: 125 pounds/57 kg UBW: 125-130 pounds Age: 83 Food Allergies: NFKA Skin: midline abd incision with sutures in places, stables and abdominal binder Sanjay 16 Edema: None GI: Last BM prior to admission Pt admitted with dx: small bowel obstruction, post exploratory laparostomy on 12/26/18 RDN visited with Pt. TPN seen running at 80 mL/hr. Per RN, Pt TPN was turned back on and Pt is tolerating well. TPN was previously on hold due to observation of fluid overload. Pt spoke with Pt's granddaughter who was sitting at bedside during time of RDN visit. Granddaughter reports that Pt was eating poorly prior to admission, but has been trying to eat a little bit throughout the day. She was tolerating soups best over any other foods. Problem with: N: no V: no D: no C: no Problems with: Chewing: no Swallowing: no Pt was seen with TPN (AA 4.25%, D 10%) infusing as ordered at 80 mL/hr = 1920 total volume, 979 total kcal, 82 total gm protein, GIR: 2.04 mg CHO/kg/min. Meets 56%% of estimated kcal and 97% estimated protein needs; kcal inadequate. Current appetite: poor prior to admission Recent wt changes: none Vitamin/Supplement: fish oil Special Diet at Home: regular Physical activity: walking Nutrition education given (specify specific nutrition education and handout given): Food-drug interactions? N/A Education given? N/A Estimated Nutritional Needs Based on actual body weight of 70 kg. Energy: 4673-4863 kcal/d (25-30 kcal/kg for older adult maintenance) Protein: 70-84 gm/d (1-1.2 gm/kg for older adult maintenance) Fluid: 6124-1844 mL/d (1 mL/kcal) or per MD. Nutrition Diagnosis 1. Inadequate nutrient intake related to inadequate nutrition support regimen as evidenced by current TPN formulation meeting < 80% estimated kcal needs. Intervention/RDN Recommendation(s): 1. Consider increasing TPN formulation to D25%, AA4.25% at 80 mL/hr, which will provide 1920 mL total volume, 1632 kcal, and 82 gm protein to meet 93% est kcal needs and 97% est protein needs. 2. If/when medically feasible, consider initiating regular PO diet. Monitor/Evaluate Goal: Intake via nutrition support to meet at least 80% of estimated needs with acceptable tolerance within 2-3 days. Monitor: nutrition support tolerance, Labs, GI function, Skin integrity, Weights. F/U in 2-3 days as high risk (12/31-)
[2018-12-29 12:07] VITALS: BP 95/61
--- NOTE | 2018-12-29 14:00 | NUR ---
CALLED THE SHIP RUNNER THE PATIENT HAS ELVATED BP. SHE WANTS THE IV FLUIDS CONTINUE AND TO MONITOT THE PATIENT AND IF THE BP IS ABOVE 170 SYSTOLIC TO CALL HER AND SHE MAY ORDER HYDROLOZINE AT THAT TIME. PATIENT IS WITH VISITOR AT BEDSIDE AND DENIES LLOYD OR DISTRESS AT THIS TIME.
--- NOTE | 2018-12-29 16:21 | NUR ---
MALE FAMILY AT BEDSIDE AND WANTS TO KNOWN WHY THE PAIENT HAS NOT BEEN UP WITH PT. THE FAMILY WAS ADVISED LAST NIGHT ABOUT THE PHYSICAL THERAPY ORDER AND THAT NO PT IS HERE ON SUNDAY. ISABELLA HAS BEEN WITH GENERAL WEAKNESS AND INTERMITTANT CONFUSION. SHE HAS TOLERATED STAFF ASSIST WITH TOLETING AND HAS BEEN INCONTINT OF BOWEL. FARIHA DENIES PAIN AT THIS TIME. CHARGE NURSE ADDRESS THE ISSUE WITH THE MALE FAMILY AND HE WANTS TO GET HER UP HIMSELF. STAFF SUGGESTED THAT SHE IS STILL WEAK AND NEEDS THERAPY FOR SAFTEY. THE FEMAL AT BEDSIDE WANTS THE DRESSING TO THE ABODMEN CHANGED. THE SITE IS NOT SOILED AND INDICATIONS IS NOT URGENT. WILL CHANGE INDICATED. PER PROTOCAL. PATIENT HAS BEEN WTIHOUT ANY ACUTE DISTRESS OF PAIN OR RESPIRATORY AT THIS TIME. SHE STATES THE STOOL IS JUST RUNNING OUT AND SHE HAD NO CONTROL. WILL CONTINUE TO MONITOR.
[2018-12-29 17:31] VITALS: BP 114/70
--- NOTE | 2018-12-29 17:48 | NUR ---
BLOOD SUGAR AT 135 AND [employer] COVERAGE WAS INDICATED. ISABELLA DUONG AT THIS TIME.
--- NOTE | 2018-12-29 17:49 | NUR ---
BLOOD SUGAR AT 135 AND [employer] COVERAGE WAS INDICATED. PATIETN DENIES PAIN AT THIS TIME. =
--- NOTE | 2018-12-29 18:30 | NUR ---
DR TRUONG CALLED FOR EVAL OF THE PATIENT. ADVISED OF WBC COUNT AND HER OVERALLY CONDITION. PATIENT HAS NOW AN ORDER FOR CLEAR LIQUID DIET IN THE MORNING AND DISCONTINUATION OF THE TPN WHEN COMPLETED. DRESSING CAN BE CHANGED DAILY. TO CONTINUE THE BINDER.
--- NOTE | 2018-12-29 19:10 | NUR ---
PT RECEIVED FROM THE DAY SHIFT RN. PT IS ALERT AND ORIENTED X4, CALM AND COOPERATIVE WITH CARE. PT HAS NO COMPLAINT OF PAIN AT THIS TIME. TPN IS INFUSING AT 80CC/HR AT THIS TIME. PT WILL BE MOVING TO CLEAR LIQUID DIET TOMORROW MORNING, PT HAS NO QUESTIONS OR CONCERNS WITH CARE AT THIS TIME. MILLER CATHETER IN PLACE AND DRAINING YELLOW URINE, RIJ [address] LINE IN PLACE AND INTACT, ABDOMINAL BINDER IN PLACE, SCDS IN PLACE, SAFETY AND COMFORT MEASURES MAINTAINED, BED IN LOWEST POSITION, CALL LIGHT WITHIN REACH.
[2018-12-29 20:53] VITALS: BP 118/66
--- NOTE | 2018-12-29 23:18 | NUR ---
PT IS AGITATED AND ANGRY AT THIS TIME. PT IS REFUSING TO WEAR NASAL CANULA AT THIS TIME. EXPLAINED TO THE PATIENT THE RISKS, BENEFITS AND PURPOSE OF THE NASAL CANULA WAS TO HELP PATIENT FROM DESATURATION, PT STILL REFUSES TO WEAR NASAL CANULA. CHARGE NURSE EFREN MADE AWARE. WILL CONTINUE TO MONITOR.
--- NOTE | 2018-12-30 00:39 | NUR ---
PT IS AWAKE AND RESTLESS AT THIS TIME. PT IS ON 3L OF O2 VIA NC, PT HAS NO COMPLAINT OF PAIN AT THIS TIME. PT COMPLAINING OF CONGESTION WITH PHLEGM THAT PATIENT IS NOT ABLE TO EXPECTORATE. OBTAINED ORDER FROM DR LOGAN, PT GIVEN 5ML OF ROBUTUSSIN PO, MILLER CATHETER INTACT AND DRAINING TO GRAVITY. SAFETY AND COMFORT MEASURES MAINTAINED, BED IN LOWEST POSITION, CALL LIGHT WITHIN REACH.
--- NOTE | 2018-12-30 04:01 | NUR ---
PT IS AWAKE AND WATCHING TV AT THIS TIME. NO ACUTE DISTRESS NOTED. PT IS ALERT AND ORIENTED X3, CALM AND COOPERATIVE WITH CARE, PT IS ON 3L OF O2 VIA NC, PT HAS NO COMPLAINT OF PAIN AT THIS TIME. SAFETY AND COMFORT MEASURES MAINTAINED, BED IN LOWEST POSITION, CALL LIGHT WITHIN REACH.
--- NOTE | 2018-12-30 05:16 | NUR ---
PT HAS RESTED IN SHORT INTERVALS THROUGHOUT THE SHIFT. PT HAS BEEN CALM AND COOPERATIVE WITH CARE BUT AT TIMES AGITATED AND RESTLESS, PT IS CURRENTLY WATCHING TV AT THIS TIME. PT HAS BEEN ALERT AND ORIENTED X3, PT IS ON 3L OF O2 VIA NC, NO ACUTE RESP DISTRESS NOTED, PT STATES DISCOMFORT IN THE ABDOMINAL AREA BUT REFUSED FOR PRN PAIN MEDICATION AT THIS TIME. PT TPN INFUSING AT 80 CC/HR, PT WILL BE ON CLEAR LIQUID DIET AFTER COMPLETION OF TPN. SAFETY AND COMFORT MEASURES MAINTAINED, BED IN LOWEST POSITION, CALL LIGHT WITHIN REACH, WILL ENDORSE CONTINUITY OF CARE TO THE ONCOMING RN.
[2018-12-30 05:21] VITALS: BP 118/70
[2018-12-30 06:30] LABS: CALCIUM 7.4 mg/dL (8.5-10.1); CARBON DIOXIDE 24.4 mmol/L (21-32); CHLORIDE SERUM 106 mmol/L (98-107); CREATININE SERUM 0.8 mg/dL (0.6-1.0); GLUCOSE SERUM 177 mg/dL (74-106); POTASSIUM SERUM 3.8 mmol/L (3.5-5.1); SODIUM SERUM 140 mmol/L (136-145)
[2018-12-30 06:43] LABS: BASOPHIL % 0.6 % (0-2); PLATELET COUNT 160 x10^3mcL (130-400); RED CELL DISTRIBUTION WIDTH 13.2 % (11.5-14.5)
--- NOTE | 2018-12-30 07:55 | NUR ---
A+OX3, NO RESPIRATORY DISTRESS NOTED, STATES PAIN IS TOLERABLE AT THIS TIME, TELE 11, PULSES MODERATE AND EQUAL EUGENIO, NO EDEMA NOTED, RECEIVING LOVENOX SQ, LUNG SOUNDS CTA, 3L NC, BOWEL SOUNDS ACTIVE, MILLER CATH DRAINING TO GRAVITY, GENERALIZED WEAKNESS, MIDLINE ABD INCISION WITH SUTURES AND LISA WITH ABD BINDER, CDI, CENTRAL LINE IN RIJ SALINE LOCKED, SITE CDI WITH ALL 3 PORTS PATENT, IV IN LFA AND RFA SALINE LOCKED, SITE WNL.
[2018-12-30 08:49] VITALS: BP 118/72
--- NOTE | 2018-12-30 10:10 | NUR ---
PT RESTING IN BED, NO RESPRIATORY DISTRESS NOTED, STATES PAIN IS TOLERABLE AT THIS TIME, MIDLINE INCISION CLEANSED WITH NS AND ISLAND DRESSING APPLIED, PT ON BED LLOYD, CALL LIGHT WITHIN REACH.
--- NOTE | 2018-12-30 11:24 | NUR ---
PT HAD LIQUID BM, STATES SHE NO LONGER NEEDS A LAXATIVE, COMPLAINING OF ABD PAIN, TYLENOL PO GIVEN, NO RESPIRATORY DISTRESS NOTED, CALL LIGHT WITHIN REACH.
--- NOTE | 2018-12-30 12:23 | NUR ---
PT HAD ANOTHER WATERY BM, LINENS CHANGED, PT CLEANED, PT ABLE TO TURN AND REPOSITION SELF NEEDED, MILLER CATH REMOVED PER DR DAVENPORT ORDER WITH CATHETER INTACT, CALL LIGHT WITHIN REACH.
[2018-12-30 13:12] VITALS: BP 116/69
--- NOTE | 2018-12-30 14:24 | NUR ---
PT RESTING IN BED, WITH BOTH EYES CLOSED, APPEARS TO BE SLEEPING, NO RESPRIATORY DISTRESS NOTED, CALL LIGHT WITHIN REACH.
--- NOTE | 2018-12-30 14:51 | NUR ---
PT RESTING IN BED, NO RESPIRATORY DISTRESS NOTED, DENIES PAIN, FAMILY AT BEDSIDE, ADRIANA LIGHT WITHIN REACH.
--- NOTE | 2018-12-30 16:20 | NUR ---
PT RESTING IN BED, NO RESPIRATORY DISTRESS NOTED, DENIES PAIN, FAMILY AT BEDSIDE, CALL LIGHT WITHIN REACH.
[2018-12-30 17:23] VITALS: BP 109/65
--- NOTE | 2018-12-30 18:18 | NUR ---
ASSISTED PT TO CALL DAUGHTER, NO ANSWER. ASSISTED PT TO CALL HOME PHONE, NO ANSWER. PT HAD WATERY BM, PT CLEANED, LINENS CHANGED. PT STATES SHE HAS NOT URINATED SINCE CATHETER REMOVED. WILL BLADDER SCAN PT. CALL LIGHT WITHIN REACH.
--- NOTE | 2018-12-30 19:00 | NUR ---
PT HAS NOT VOIDED SINCE MILLER CATH REMOVED. PT STATES SHE HAS NO URGE TO VOID. PT BLADDER SCANNED: 30 ML. REPEAT BLADDER SCAN PERFORMED BY JAMI HINDS: 17 ML. WILL CONT TO MONITOR.
--- NOTE | 2018-12-30 19:35 | NUR ---
PT RECEIVED A/O X 3-4, WITH EPISODES OF CONFUSION, ABLE TO MAKE NEEDS KNOWN. TELE #11, DENIES ANY CP/RPESSURE. PULSES PALPABLE, NO EDEMA PRESENT. BREATHING IS EVEN AND UNLABORED ON RA, DENIES SOB, NO RESP DISTRESS NOTED, CONT PULSE OX-100%, BIPAP AT NIGHT. ABD SOFT AND ROUND, BOWEL TONES ACTIVE X4 QUAD, DENIES N/V. PT HAD MILLER CATH REMOVED TODAY, PT DENIES VOIDING POST-REMOVAL. BLADDER SCAN DONE BY AM NURSE WITH 30 ML URINE NOTED, WILL MONITOR FOR URINARY RETENTION. GENERALIZED WEAKNESS. MIDLINE ABD INCISION WITH SUTURES AND LISA WITH ABD DRSG IN PLACE, CDI; ABD BINDER IN PLACE. PT DENIES HAVING ANY PAIN AT THIS TIME. NO ACUTE DISTRESS NOTED. SL TO RFA AND LFA, PATENT AND INTACT, SITE WNL. RIJ IN PLACE, TRIPLE LUMEN, BLUE PORT NOT PATENT, SITE FREE FROM REDNESS OR SWELLING. BED IN LOWEST SETTING, SIDE RAILS UP X2, CALL LIGHT WITHIN REACH. WILL CONT TO MONITOR.
--- NOTE | 2018-12-30 19:59 | NUR ---
ENDORSED CARE TO DAGO HINDS.
[2018-12-30 20:48] VITALS: BP 118/67
--- NOTE | 2018-12-30 23:39 | NUR ---
PT C/O 08/21 ABD PAIN, PRN TORADOL IVP GIVEN ORDERED. NO ACUTE DISTRESS NOTED. CALL LIGHT WITHIN REACH. WILL CONT TO MONITOR.
--- NOTE | 2018-12-31 01:45 | NUR ---
PT C/O ANXIETY, PRN ATIVAN IVP GIVEN ORDERED. NO ACUTE DISTRESS NOTED. CALL LIGHT WITHIN REACH. WILL CONT TO MONITOR.
[2018-12-31 05:42] VITALS: BP 114/56
--- NOTE | 2018-12-31 07:01 | NUR ---
PT SLEPT AT INTERVALS THROUGHOUT THE EVENING. BREATHING IS EVEN AND UNLABORED, NO RESP DISTRESS NOTED. PT DENIES HAVING ANY PAIN AT THIS TIME. PT HAD MULTIPLE EPISODES OF DIARRHEA DURING SHIFT. RIJ CENTRAL LINE IN PLACE, CHG WIPES GIVEN. SL TO LFA AND RFA, PATENT AND INTACT, SITE WNL. NO ACUTE CHANGES ENCOUNTERED DURING SHIFT. ALL NEEDS MET AND ANTICIPATED. CALL LIGHT WITHIN REACH. WILL ENDORSE CARE TO AM NURSE.
--- NOTE | 2018-12-31 08:30 | NUR ---
INCONT OF LOOSE STOOL; EDVIN CARE PROVIDED, NO SKIN ISSUES NOTED. REPOSITION UP FOR BREAKFAST. CALL LIGHT WITHIN REACH.
--- NOTE | 2018-12-31 08:45 | NUR ---
SCREEN FOR LOW IHSAN SCALE AT RISK PRESSURE ULCER INJURY PREVENTION INTERVENTIONS: -TURN AND REPOSITION PATIENT Q 2H OFFLOAD LEFT AND RIGHT HIPS -ASSESS AND MONITOR SKIN CONDITION DURING POSITION CHANGE -OFFLOAD BILATERAL HEELS BY PLACING PILLOWS UNDER CALVES AT ALL TIMES, UNLESS OTHERWISE CONTRAINDICATED -PRESSURE REDISTRIBUTION SURFACE THERAPY -KEEP SKIN CLEAN AND DRY AT ALL TIMES.
--- NOTE | 2018-12-31 09:09 | NUR ---
PATIENT RESTING IN BED NO COMPLAIN, DENIES PAIN. LOVENOX SQ ADMINISTERED TO RLQ; ABDOMINAL DRESSING CDI, ABD BINDER IN PLACE. NEEDS MET. CALL LIGHT WITHIN REACH.
[2018-12-31 09:31] LABS: CALCIUM 8.1 mg/dL (8.5-10.1); CARBON DIOXIDE 24.1 mmol/L (21-32); CHLORIDE SERUM 104 mmol/L (98-107); GLUCOSE SERUM 98 mg/dL (74-106); SODIUM SERUM 139 mmol/L (136-145)
[2018-12-31 09:56] VITALS: BP 129/78
--- NOTE | 2018-12-31 12:41 | NUR ---
PATIENT RESTING IN BED C/O HAVING DIFFICULTY WITH BREATHING CHECK O2SAT 98% RA AND REPOSITION PATIENT UP IN BED. TELE NSR W/ HR 99. BS 84, ZOSYN IVPB INFUSING TO RIJ, PATENT AND INTACT. CONT TO MONITOR.
[2018-12-31 13:37] VITALS: BP 119/67
--- NOTE | 2018-12-31 13:51 | NUR ---
INCONT OF WATERY STOOL, YELLOW GREEN COLOR NO FOUL ODOR NOTED. EDVIN CARE PROVIDED. REPOSITION UP IN BED, MEDICATED FOR PAIN 08/21 ABDOMEN W/ TORADOL IVP TO RIJ FLUSH WELL AND PATENT. CALL LIGHT WITIN REACH.
[2018-12-31 16:55] VITALS: BP 128/77
--- NOTE | 2018-12-31 18:03 | NUR ---
REPOSITION PATIENT UP IN BED FOR DINNER, ZOSYN IVPB INFUSING TO RIJ PATENT, VISITOR CAME IN TO VISIT PATIENT. NO COMPLAINS. NO PAIN NOTED. NEEDS MET. CALL LIGHT WITHIN REACH.
--- NOTE | 2018-12-31 19:10 | NUR ---
PT RECEIVED A/O X 4, WITH EPISODES OF CONFUSION, ABLE TO MAKE NEEDS KNOWN. TELE #11, DENIES ANY CP/RPESSURE. PULSES PALPABLE, NO EDEMA PRESENT. BREATHING IS EVEN AND UNLABORED ON RA, DENIES SOB, NO RESP DISTRESS NOTED, ABD SOFT AND ROUND, BOWEL TONES ACTIVE X4 QUAD, DENIES N/V. VOIDS FREELY WITH EPISODES OF URINARY INCONTINENCE. GENERALIZED WEAKNESS. MIDLINE ABD INCISION WITH SUTURES AND LISA WITH ABD DRSG IN PLACE, CDI; ABD BINDER IN PLACE. PT DENIES HAVING ANY PAIN AT THIS TIME. NO ACUTE DISTRESS NOTED. SL TO RFA AND LFA, PATENT AND INTACT, SITE WNL. RIJ IN PLACE, TRIPLE LUMEN, BLUE PORT NOT PATENT, TWO OTHER PORTS PATENT WITH NO BLOOD RETURN NOTED, SITE FREE FROM REDNESS OR SWELLING. BED IN LOWEST SETTING, SIDE RAILS UP X2, FAMILY AT BEDSIDE, CALL LIGHT WITHIN REACH. WILL CONT TO MONITOR.
[2018-12-31 21:05] VITALS: BP 125/22; BP 125/82
--- NOTE | 2019-01-01 01:14 | NUR ---
PT C/O ANXIETY AND DIFFICULTY SLEEPING, PRN ATIVAN IVP GIVEN ORDERED. PT IN NO ACUTE DISTRESS. CALL LIGHT WITHIN REACH. WILL CONT TO MONITOR.
[2019-01-01 05:54] VITALS: BP 120/70
--- NOTE | 2019-01-01 06:34 | NUR ---
PT SLEPT AT INTERVALS THROUGHOUT THE EVENING. BREATHING IS EVEN AND UNLABORED, NO RESP DISTRESS NOTED. PT DENIES HAVING ANY PAIN AT THIS TIME. PT HAD MULTIPLE EPISODES OF LOOSE STOOL DURING SHIFT, PT CLEANED AND REPOSITIONED, HYDRAGUARD PLACED TO COCCYX AND PERIAREA. NO ACUTE CHANGES ENCOUNTERED DURING SHIFT. ALL NEEDS MET AND ANTICIPATED. RIJ IN PLACE, SITE FREE FROM REDNESS OR SWELLING, CHG WIPES GIVEN. SL IN PLACE TO LFA AND RFA, PATENT AND INTACT, SITES NLW. BED ALARM ON. CALL LIGHT WITHIN REACH. WILL ENDORSE CARE TO AM NURSE.
--- NOTE | 2019-01-01 07:03 | NUR ---
PHYSICAL THERAPY DAILY NOTES CO-SIGN All documentation done by the Finishing Pan Operator for 12/31/18 has been reviewed. I agree with the documentation. Reviewed/Co-Signed by: Natacha Camp PT Documentation Done by: LENIN HAYDEN PTA
--- NOTE | 2019-01-01 07:24 | NUR ---
PT IN NO ACUTE DISTRESS. CONTINUITY OF CARE ENDORSED TO CHAGO HINDS. ALL QUESTIONS AND CONCERNS ADDRESSED.
--- NOTE | 2019-01-01 08:00 | NUR ---
RECEIVED PATIENT AWAKE AND AT TIMES IMPULSIVE AND FORGETFUL PATIENT HAS PULLED OFF HER TELE MONITOR AND SHE IS HOLDING IN HER HAND AND SMILING AND SHE DOES NOT REMEMBER REMOVING IT. PATIENT HAS ABDOMINAL BINDER IN PLACE AND DRESSING IS DRY AND INTACT TOT HE ABDOMINAL WOUND SITE. PATIENT IS STATUS POST SMALL BOWEL OBSTRUCTION AND HAD SURGEYR AND HAS BEEN TOLERATING DIET AND FLUIDS WELL SHE HAS BEEN ON ZOSYN AND PEPCID AND NO ADVERSE REACTION WAS NOTED. SHE IS OOB WITH ASSIT TO THE RESTOROM AND HAS HAD PHYSICAL THERAPY AND PLAN OF CARE SI FOR SNF PLACEMENT FOR REHAB AND PHYSICAL THERAPY. AT THIS TIME SHE HAS BEEN ON TELE SHE ASN MCKENNA NSR OR TACHYCARDIC PER THE MONITOR. SHE HAS A HISTORY FO HTN, CHOLECYSTECTOMY AND HYSTERECTOMY SHE HAS BEEN WNL ON HER BLOOD SUGAR. PATIENT WITH RIGHT JUGULAR CENTRAL LINE AND IS FUNCTIONING WELL WITH THE MEDICATIONS GIVEN. SHE WAS ON LOVENOX BUT HAS BEEN DISCONTINUE AT THIS TIME. LUNGS ARE CLEAR AND BOWEL SOUNDS ACTIVE. SHE HAS INTERMITTANT PAIN TO THE ABDOMEN BUT AT THIS TIME SHE HAS NOT REQUESTED PAIN MEDICATION.
[2019-01-01 09:53] VITALS: BP 116/70
--- NOTE | 2019-01-01 12:35 | NUR ---
BLOOD SUGAR AT TIS TIME AT 99. NO COVEAGE IDIATED. APTIENT HAS BEEN UP WITH PT AND TOLERATED WELL. PATIENT WAS TO GO TO A SNF FOR CONTINUED REHAB BUT THE FRIEND AT BEDSIDE IS IS GOING HOME AND THERE IS PLENTY OF FAMILY AND FRIENDS TO CARE FOR HER AT HOME.
--- NOTE | 2019-01-01 13:38 | NUR ---
AWAITING THE HOME HEALTH ARRANGEMENTS PER CHARGE NURSE. ALFONSO HAD BEEN GIVEN ANOTHER DOSING OF ZOSYN AND TOLERTE DTHE DIET ROERE4 OF CHOPPED FOOD. WILL CONTINUE TO MONITOR.
[2019-01-01 14:02] VITALS: BP 121/69
[2019-01-01 14:27] VITALS: BP 121/67
--- NOTE | 2019-01-01 14:34 | NUR ---
Follow-up Nutrition Assessment: 212T/B EMANI, CARISSA HR FU Dx: SBO, post ex-lap 12/26 PMHx: cholecystectomy Labs: (01/01) BUN 20H, CA 8.1L, HGB 10.7L Meds: Ativan, D 50%, humulin, pepcid, Zofran, zosyn Diet: mechanically soft- chopped PO Intake: (01/01) breakfast 50%, (12/31) lunch 30%, breakfast 20% Weights: (12/25) 68.4 kg, (12/27) 69.7 kg, (01/01) Skin: midline abd incision w/ sutures and david intact Sanjay: 16 I/Os: (12/31) 460/ 200 (260) Edema: none GI: diarrhea Last BM: 12/31 RDN Visit (01/01): Pt was sleeping. Per GUZMAN Parkinson, pt does not have any N/V and is eating about of her meals. Estimated Nutritional Needs based on actual body weight of 70 kg Energy: 8012-6811 kcal/d (25-30 kcal/kg) Protein: 70-84 g/d (1.0-1.2 g/kg) - geriatric maintenance Fluid: 5194-7171 (1ml/kcal) or per MD Nutrition Diagnosis 1. Inadequate oral intake related to possible poor appetite as evidenced by documented PO <75%. Intervention 1. Recommend continuing mechanically-soft chopped diet. 2. Recommend Ensure high protein BID. Paged Dr. Cornejo, waiting for call back Monitor/Evaluate Goal: Have pt meet at least 75% of estimated needs Monitor: PO intake, Labs, GI function F/U in 3-5 days as moderate risk 01/04-
--- NOTE | 2019-01-01 14:34 | NUR ---
1. Recommend continuing mechanically-soft chopped diet. 2. Recommend Ensure high protein BID. Paged Dr. Cornejo, waiting for call back
--- NOTE | 2019-01-01 15:00 | NUR ---
REMOVED THE CENTRAL LINE AND INTACT AND THE TWO PERIPHARAL LINES INDIATED. REMOVED THE TELE AND CHANGED HER DRESSING TO THE ABDOMINAL WOUND INTERMITTANT ILSA OF FIFTEEN INTACT AND NO DRAINAGE OR REDNESS TO THE SITE. PATIENT HAS SOME BRUISING BUT IS REDUCED TO GREEN AND YELLOW WITH SOME BLUISH PURPLE. PATIENT WAS ABLE TO TRANSFER HERSELF TO A WHEECHAIR AND DISCHARGED TO HOME WITH ALL BELONGINGS. PATIENT IS TO BE FOLLOWED UP WIT HOME HEALTH INDICATED. ENCOURAGE PATIENT TO CONTINEU TO DEEP BREATH AND AMBULATE WITH ASSIST. ADVISED NO HEAVY LIFTING AT THIS TIME.
--- NOTE | 2019-01-01 15:50 | NUR ---
PHYSICAL THERAPY DAILY NOTES CO-SIGN All documentation done by the Director Of Events for 01/01/19 has been reviewed. I agree with the documentation. Reviewed/Co-Signed by: Wes Tee PT Documentation Done by:DEVAUGHN FLEMING, SYSTEMS PROTECTION TECHNICIAN
== END 2019-01-01 16:34 | disposition home health service (06) | DRG 335 ==
LOC: ED 19:58 → IC 12-25 00:21 → DU 12-25 00:21 → MU 12-25 00:21 → IC 12-26 13:42 → MU 12-26 13:45 → IC 12-26 13:54 → MU 12-27 11:25 → DU 12-28 04:14
PROVIDERS: Anesthesiology; Emergency Medicine; Internal Medicine; Surgery; ADMIT Internal Medicine Pulmonary Disease
PROC: 05HM33Z Insertion of Infusion Device into Right Internal Jugular Vein, Percutaneous Approach (ICD-10-PCS; 2018-12-26)
PROC: 0DNU0ZZ Release Omentum, Open Approach (ICD-10-PCS; 2018-12-26)
PROC: 0W9G0ZZ Drainage of Peritoneal Cavity, Open Approach (ICD-10-PCS; 2018-12-26)
PROC: 0DNA0ZZ Release Jejunum, Open Approach (ICD-10-PCS; principal; 2018-12-26 11:30)
DX: K56.52 Intestinal adhesions [bands] with complete obstruction (principal); K66.1 Hemoperitoneum; K55.8 Other vascular disorders of intestine; R18.8 Other ascites; N17.9 Acute kidney failure, unspecified; K66.0 Peritoneal adhesions (postprocedural) (postinfection); I10 Essential (primary) hypertension; E87.6 Hypokalemia; Z68.26 Body mass index [BMI] 26.0-26.9, adult; Z90.710 Acquired absence of both cervix and uterus; Z90.49 Acquired absence of other specified parts of digestive tract
CPT/HCPCS: 36600; 82962; 83880; 97116-GP; 97530-GP; C1751; G0378; J0330; J0690; J0696; J1170; J1650; J1885; J1940; J2060; J2175; J2250; J2270; J2405; J2543; J2704; J2710; J2765; J3010; J3480; J3490; J7030; J7040; J7050; J7060; J7120; J7131; J7620; Q0092; Q9967